=== PATIENT | female | born 1965 | race Two or more races ===

== ENCOUNTER → 2020-12-06 | Day surgery (SDC) | payer BC | END | disposition home or self-care (01) | LOC: FMAMMOTONE 08:32 | PROVIDERS: ATTEND Family Medicine Geriatric Medicine | PROC: 0HBT3ZX Excision of Right Breast, Percutaneous Approach, Diagnostic (ICD-10-PCS; principal; 2020-12-06) | DX: D05.01 Lobular carcinoma in situ of right breast (principal); N60.81 Other benign mammary dysplasias of right breast; N64.89 Other specified disorders of breast; R92.0 Mammographic microcalcification found on diagnostic imaging of breast | CPT/HCPCS: 19081; 76098-TC-FY; 87899; 88305-TC; 88342-TC; A4648 ==

== ENCOUNTER 2021-01-17 11:54 | Inpatient (IN) | payer BC ==
[2021-01-17 13:29] LABS: BASO % 1.4 % (0-2.0); EOS % 2.5 % (0-4.5); HEMATOCRIT 42.5 % (32.4-45.2); HEMOGLOBIN 14.9 GM/dL (10.7-15.3); MCH 28.9 pg (25.7-33.7); MEAN CELL VOLUME 82.6 fl (80-96); MEAN PLT VOLUME 9.7 fl (7.5-11.1); MONO % 6.2 % (3.8-10.2); NEUT % 69.9 % (42.8-82.8); PLATELET COUNT 301 10^3/uL (134-434); RBC 5.14 M/mm3 (3.60-5.2); RDW 15.8 % (11.6-15.6); WHITE BLOOD COUNT 6.7 K/mm3 (4.0-10.0)
[2021-01-17 13:41] LABS: INR 1.03 (0.83-1.09); PROTHROMBIN TIME (PATIENT) 11.5 SEC (9.7-13.0)
[2021-01-17 13:44] LABS: ACTIVATED PTT 38.2 SECONDS (25.2-36.5)
[2021-01-17 13:58] LABS: CHLORIDE 107 mmol/L (98-107); SODIUM 137 mmol/L (136-145)
[2021-01-17 14:00] LABS: ALBUMIN 3.1 g/dl (3.4-5.0); ANION GAP 9 MMOL/L (8-16); BLOOD UREA NITROGEN 12.9 mg/dL (7-18); CALCIUM 9.7 mg/dL (8.5-10.1); CO2 21 mmol/L (21-32); GLUCOSE,RANDOM 112 mg/dL (74-106); MAGNESIUM 2.2 mg/dL (1.8-2.4)
[2021-01-17 14:03] LABS: BILIRUBIN,DIRECT 5.8 mg/dL (0.0-0.2); CREATININE 0.7 mg/dL (0.55-1.3); SGOT/AST 74 U/L (15-37); SGPT/ALT 115 U/L (13-61)
[2021-01-17 14:04] LABS: BILIRUBIN,TOTAL 6.8 mg/dL (0.2-1); TOT PROT 7.1 g/dl (6.4-8.2)
[2021-01-17 14:06] LABS: ALK PHOS 412 U/L (45-117)
[2021-01-17 14:15] LABS: GAMMA GLUTAMYL TRANSPEPTIDASE 936 U/L (5-85)
[2021-01-17] MEDS ORDERED: ONDANSETRON 4 MG/2 ML VIAL IVPUSH ONE (14:23)
[2021-01-17] MEDS ORDERED: LACTATED RINGERS SOLUTION 1000 ML INFUS.BAG IV ONE (14:24)
[2021-01-17] MEDS ORDERED: ONDANSETRON 4 MG/2 ML VIAL ONE (14:50)
[2021-01-17] MEDS ORDERED: PIPERACILLIN/TAZOB 4.5 GM 4.5 GM in DEXTROSE 5%-WATER 100 ML IVPB ONE (15:08)
[2021-01-17] MEDS ORDERED: PIPERACILLIN/TAZOB 4.5 GM 4.5 GM/100 ML BAG IVPB ONE (15:14)
[2021-01-17] MEDS ORDERED: SODIUM CHLORIDE 0.45% 1,000 ML IV SCH (17:30)
[2021-01-17 18:57] LABS: EPI CELLS 9 /uL (0-25.1); HYALINE CASTS 5 /uL (0-3.1); PH,URINE 5.5 (5.0-8.0); URINE APPEARANCE CLOUDY; URINE BILIRUBIN 3+ (NEGATIVE); URINE COLOR DK YELLOW; URINE GLUCOSE (UA) NEGATIVE (NEGATIVE); URINE KETONE NEGATIVE (NEGATIVE); URINE LEUK ESTERASE 1+ (NEGATIVE); URINE NITRITE POSITIVE (NEGATIVE); URINE PROTEIN 1+ (NEGATIVE); URINE RBC 5 /uL (0-23.9); URINE WBC 18 /uL (0-25.8)
[2021-01-17 19:54] LABS: URINE CRYSTALS MOD. BILI /hpf
[2021-01-17] MEDS ORDERED: ONDANSETRON 4 MG/2 ML VIAL IVPUSH PRN (21:46)
[2021-01-17] MEDS ORDERED: CEFTRIAXONE 1 GM/50 ML BAG ONE (22:01)
[2021-01-17] MEDS: CEFTRIAXONE 1 GM in DEXTROSE 5%-WATER - 50 ML IVPB SCH (22:19)
[2021-01-17] MEDS: DEXTROSE 5%-0.45% SALINE 1,000 ML IV SCH (22:19)
[2021-01-18 00:06] VITALS: BMI 37.9
[2021-01-18] MEDS ORDERED: INDOMETHACIN 50 MG RECTAL SUPPOSITORY PR ONE (07:42)
[2021-01-18] MEDS ORDERED: MIDAZOLAM HCL 2 MG/2 ML SINGLE DOSE VIAL ONE (07:46)
[2021-01-18] MEDS ORDERED: fentaNYL CITRATE 250 MCG/5 ML VIAL ONE (07:46)
[2021-01-18] MEDS ORDERED: KETAMINE HCL 500 MG/10 ML VIAL ONE (07:46)
[2021-01-18] MEDS ORDERED: ALBUTEROL SO4 HFA INHALER IH ONE (07:46)
[2021-01-18 08:43] LABS: HEMATOCRIT 40.5 % (32.4-45.2); MCH 28.5 pg (25.7-33.7); MCHC 34.5 g/dl (32.0-36.0); MEAN CELL VOLUME 82.5 fl (80-96); MEAN PLT VOLUME 10.3 fl (7.5-11.1); PLATELET COUNT 272 10^3/uL (134-434); RDW 15.7 % (11.6-15.6); WHITE BLOOD COUNT 6.3 K/mm3 (4.0-10.0)
[2021-01-18 09:02] LABS: CALCIUM 9.4 mg/dL (8.5-10.1)
[2021-01-18 09:03] LABS: BLOOD UREA NITROGEN 9.6 mg/dL (7-18)
[2021-01-18 09:06] LABS: CREATININE 0.7 mg/dL (0.55-1.3)
[2021-01-18 09:08] LABS: BILIRUBIN,TOTAL 6.5 mg/dL (0.2-1); TOT PROT 6.6 g/dl (6.4-8.2)
[2021-01-18 09:40] LABS: ANISOCYTOSIS 0; HELMET CELLS 0; HOWELL-JOLLY BODIES 0; MACROCYTOSIS 0; OVALOCYTE 0; PLATELET ESTIMATE NORMAL; ROULEAU 0; SICKELED CELLS 0; TARGET CELLS 0; TEAR DROP CELLS 0; TOXIC GRANULATION 0
[2021-01-18] MEDS ORDERED: ALBUTEROL SO4 0.083% IH SOL 2.5 MG/3 ML VIAL.NEB. NEB ONE (10:09)
[2021-01-18] MEDS ORDERED: IPRATROPIUM BR 0.02% 0.5 MG/2.5 ML VIAL.NEB. NEB ONE ×2 (10:09→10:21)
[2021-01-18] MEDS ORDERED: cefTRIAXone SODIUM 1 GM VIAL ONE ×2 (10:19→10:29)
[2021-01-18] MEDS: CEFTRIAXONE 1 GM in DEXTROSE 5%-WATER - 50 ML IVPB SCH (10:37)
[2021-01-18] MEDS: DEXTROSE 5%-0.45% SALINE 1,000 ML IV SCH ×2 (12:34→19:13)
[2021-01-18] MEDS ORDERED: ONDANSETRON 4 MG/2 ML VIAL IVPUSH PRN (12:50)
[2021-01-18] MEDS: ENOXAPARIN NA (PORCINE) 40 MG/0.4 ML DISP.SYRIN SQ SCH (22:07)
[2021-01-19] MEDS: DEXTROSE 5%-0.45% SALINE 1,000 ML IV SCH (01:44)
[2021-01-19 08:54] LABS: BASO % 0.5 % (0-2.0); HEMATOCRIT 34.8 % (32.4-45.2); HEMOGLOBIN 11.8 GM/dL (10.7-15.3); LYMPH % 15.7 % (8-40); MCH 28.9 pg (25.7-33.7); MEAN CELL VOLUME 85.1 fl (80-96); MEAN PLT VOLUME 11.1 fl (7.5-11.1); MONO % 5.1 % (3.8-10.2); NEUT % 78.7 % (42.8-82.8); PLATELET COUNT 240 10^3/uL (134-434); RBC 4.09 M/mm3 (3.60-5.2); RDW 15.9 % (11.6-15.6); WHITE BLOOD COUNT 10.5 K/mm3 (4.0-10.0)
[2021-01-19 09:02] LABS: ALBUMIN 2.4 g/dl (3.4-5.0); BLOOD UREA NITROGEN 9.3 mg/dL (7-18); CALCIUM 8.5 mg/dL (8.5-10.1)
[2021-01-19 09:05] LABS: CREATININE 0.6 mg/dL (0.55-1.3)
[2021-01-19 09:06] LABS: BILIRUBIN,TOTAL 2.9 mg/dL (0.2-1)
[2021-01-19 09:07] LABS: TOT PROT 5.6 g/dl (6.4-8.2)
[2021-01-19] MEDS ORDERED: DEXTROSE 5%-WATER - 50 ML IVPB ONE (09:14)
[2021-01-19] MEDS ORDERED: cefTRIAXone SODIUM 1 GM VIAL ONE (09:14)
[2021-01-19] MEDS: ENOXAPARIN NA (PORCINE) 40 MG/0.4 ML DISP.SYRIN SQ SCH (09:19)
[2021-01-19] MEDS: CEFTRIAXONE 1 GM in DEXTROSE 5%-WATER - 50 ML IVPB SCH (09:19)
[2021-01-19] MEDS ORDERED: KETOROLAC TROMETHAMINE 30 MG/1 ML VIAL IVPUSH ONE (20:15)
[2021-01-20] MEDS: DEXTROSE 5%-0.45% SALINE 1,000 ML IV SCH ×2 (03:07→17:41)
[2021-01-20] MEDS ORDERED: cefTRIAXone SODIUM 1 GM VIAL ONE (09:01)
[2021-01-20] MEDS ORDERED: DEXTROSE 5%-WATER - 50 ML IVPB ONE (09:01)
[2021-01-20] MEDS: ENOXAPARIN NA (PORCINE) 40 MG/0.4 ML DISP.SYRIN SQ SCH (09:10)
[2021-01-20] MEDS: CEFTRIAXONE 1 GM in DEXTROSE 5%-WATER - 50 ML IVPB SCH (09:10)
[2021-01-20 09:26] LABS: BASO % 0.5 % (0-2.0); EOS % 2.2 % (0-4.5); HEMATOCRIT 37.8 % (32.4-45.2); HEMOGLOBIN 12.8 GM/dL (10.7-15.3); LYMPH % 29.5 % (8-40); MCH 28.9 pg (25.7-33.7); MCHC 33.7 g/dl (32.0-36.0); MEAN CELL VOLUME 85.8 fl (80-96); MEAN PLT VOLUME 10.6 fl (7.5-11.1); MONO % 5.8 % (3.8-10.2); PLATELET COUNT 273 10^3/uL (134-434); RBC 4.41 M/mm3 (3.60-5.2); RDW 15.8 % (11.6-15.6); WHITE BLOOD COUNT 7.5 K/mm3 (4.0-10.0)
[2021-01-20 09:45] LABS: BLOOD UREA NITROGEN 10.1 mg/dL (7-18)
[2021-01-20 09:46] LABS: ALBUMIN 2.8 g/dl (3.4-5.0); CALCIUM 8.9 mg/dL (8.5-10.1)
[2021-01-20 09:48] LABS: BILIRUBIN,DIRECT 2.1 mg/dL (0.0-0.2); CREATININE 0.7 mg/dL (0.55-1.3)
[2021-01-20 09:50] LABS: BILIRUBIN,TOTAL 2.6 mg/dL (0.2-1); TOT PROT 6.2 g/dl (6.4-8.2)
[2021-01-21 08:42] LABS: HEMATOCRIT 36.5 % (32.4-45.2); HEMOGLOBIN 12.4 GM/dL (10.7-15.3); LYMPH % 23.3 % (8-40); MCH 28.7 pg (25.7-33.7); MEAN CELL VOLUME 84.5 fl (80-96); MEAN PLT VOLUME 10.2 fl (7.5-11.1); MONO % 7.7 % (3.8-10.2); PLATELET COUNT 252 10^3/uL (134-434); RBC 4.32 M/mm3 (3.60-5.2); RDW 15.3 % (11.6-15.6); WHITE BLOOD COUNT 7.7 K/mm3 (4.0-10.0)
[2021-01-21 09:11] LABS: CALCIUM 8.7 mg/dL (8.5-10.1)
[2021-01-21 09:12] LABS: ALBUMIN 2.4 g/dl (3.4-5.0); BLOOD UREA NITROGEN 8.2 mg/dL (7-18)
[2021-01-21 09:15] LABS: BILIRUBIN,DIRECT 1.7 mg/dL (0.0-0.2); CREATININE 0.6 mg/dL (0.55-1.3)
[2021-01-21 09:17] LABS: BILIRUBIN,TOTAL 2.3 mg/dL (0.2-1); TOT PROT 5.7 g/dl (6.4-8.2)
[2021-01-21] MEDS ORDERED: cefTRIAXone SODIUM 1 GM VIAL ONE (10:56)
[2021-01-21] MEDS ORDERED: DEXTROSE 5%-WATER - 50 ML IVPB ONE (10:56)
[2021-01-21] MEDS: CEFTRIAXONE 1 GM in DEXTROSE 5%-WATER - 50 ML IVPB SCH (11:01)
[2021-01-21] MEDS: ENOXAPARIN NA (PORCINE) 40 MG/0.4 ML DISP.SYRIN SQ SCH (11:01)
[2021-01-21] MEDS: DEXTROSE 5%-0.45% SALINE 1,000 ML IV SCH (12:15)
[2021-01-21 14:39] LABS: URINE APPEARANCE CLEAR; URINE BILIRUBIN NEGATIVE (NEGATIVE); URINE COLOR YELLOW; URINE GLUCOSE (UA) NEGATIVE (NEGATIVE); URINE KETONE NEGATIVE (NEGATIVE); URINE LEUK ESTERASE NEGATIVE (NEGATIVE); URINE NITRITE NEGATIVE (NEGATIVE); URINE PROTEIN NEGATIVE (NEGATIVE)
[2021-01-21 15:50] VITALS: BP 126/83; PULSE 98; TEMP 98.6
== END 2021-01-21 20:25 | disposition home or self-care (01) | DRG 445 ==
LOC: JER 11:54 → JERBED 13:01 → J8W 23:41
PROVIDERS: ADMIT Internal Medicine; ATTEND Internal Medicine
PROC: 0F798DZ Dilation of Common Bile Duct with Intraluminal Device, Via Natural or Artificial Opening Endoscopic (ICD-10-PCS; principal; 2021-01-18 07:30)
DX: K83.1 Obstruction of bile duct (principal); R17 Unspecified jaundice; J44.9 Chronic obstructive pulmonary disease, unspecified; E66.9 Obesity, unspecified; R79.89 Other specified abnormal findings of blood chemistry; E86.0 Dehydration; R74.01 Elevation of levels of liver transaminase levels; K83.8 Other specified diseases of biliary tract
CPT/HCPCS: 36415; 80048; 80053; 80076; 80307; 81003; 82248; 82378; 82436; 82570; 82977; 83690; 83735; 84133; 84156; 84300; 84484; 85025; 85610; 85730; 86301; 86705; 86708; 87086; 87340; 87517; 87522; 93005; 93010; 94640; 99285-25; C9803; U0003; U0005

== ENCOUNTER 2021-03-05 04:23 | Day surgery (SDC) | payer BC ==
[2021-03-04 16:47] VITALS: BMI 38.9
[2021-03-05] MEDS ORDERED: PROPOFOL 20 ML ONE (16:21)
[2021-03-05] MEDS ORDERED: MIDAZOLAM HCL 2 MG/2 ML SINGLE DOSE VIAL ONE (16:22)
[2021-03-05] MEDS ORDERED: ONDANSETRON 4 MG/2 ML VIAL IVPUSH PRN (16:27)
[2021-03-05] MEDS ORDERED: PROMETHAZINE HCL 25 MG/1 ML VIAL IVPUSH PRN (16:27)
[2021-03-05] MEDS ORDERED: LACTATED RINGERS SOLUTION 1,000 ML IV SCH (16:30)
[2021-03-05] MEDS ORDERED: ceFAZolin SODIUM 1 GM VIAL IVPB ONE (16:49)
[2021-03-05] MEDS ORDERED: LIDOCAINE HCL 1%, 10 MG/ML (20ML VIAL) NR ONE (16:57)
[2021-03-05 19:35] VITALS: BP 112/69; PULSE 96; TEMP 89.6
== END 2021-03-05 19:50 | disposition home or self-care (01) ==
LOC: JASU-SURG 04:23
PROVIDERS: ATTEND Surgery Vascular Surgery
PROC: 05HM33Z Insertion of Infusion Device into Right Internal Jugular Vein, Percutaneous Approach (ICD-10-PCS; 2021-03-05)
PROC: B543ZZA Ultrasonography of Right Jugular Veins, Guidance (ICD-10-PCS; 2021-03-05)
PROC: 0JH63XZ Insertion of Tunneled Vascular Access Device into Chest Subcutaneous Tissue and Fascia, Percutaneous Approach (ICD-10-PCS; principal; 2021-03-05 16:00)
DX: C25.9 Malignant neoplasm of pancreas, unspecified (principal)
CPT/HCPCS: 36561; 76937; C1788; 71045-TC-FY; 76000-TC-FY; 81025; 94760

== ENCOUNTER → 2021-03-06 | Day surgery (SDC) | payer BC ==
[~2021-03-06] MED LIST: ATROPINE SO4 0.4 MG/1 ML VIAL SQ ONE; DEXAMETHASONE SODIUM PHOSPHATE 10 MG in SODIUM CHLORIDE 50 ML IVPB ONE; FLUOROURACIL CP ONE; FOSAPREPITANT DIMEGLUMINE 150 MG in SODIUM CHLORIDE 145 ML IVPB ONE; IRINOTECAN HCL 320 MG in DEXTROSE 5%-WATER - 500 ML IVPB ONE; LEUCOVORIN INJECTION - 860 MG in DEXTROSE 5%-WATER - 250 ML IVPB ONE; PALONOSETRON HCL 0.25 MG/5 ML VIAL IVPUSH ONE; PORTA CATH FLUSH 10 ML IVPUSH ONE; SODIUM CHLORIDE 250 ML IV ONE; SODIUM CHLORIDE 500 ML IV STA; SODIUM CHLORIDE CP ONE
[2021-03-06 17:46] VITALS: BP 114/70; PULSE 96; TEMP 98.3
== END | disposition home or self-care (01) ==
LOC: JONCCHEMO 07:15
PROVIDERS: ATTEND Internal Medicine Hematology & Oncology
DX: Z51.11 Encounter for antineoplastic chemotherapy (principal); C25.0 Malignant neoplasm of head of pancreas
CPT/HCPCS: 96361; 96366; 96367; 96375; 96413; 96415; 96417; G0498; J1453; J2469; J9206; J9263

== ENCOUNTER 2021-03-08 16:30 | Day surgery (SDC) | payer BC ==
[2021-03-08 18:17] VITALS: BP 141/78; PULSE 97; TEMP 98.6
== END 2021-03-08 19:43 | disposition home or self-care (01) ==
LOC: JONCNONCHE 16:30 → J7W 16:30 → JONCNONCHE 19:43
PROVIDERS: ATTEND Internal Medicine Hematology & Oncology
PROC: 2W54XYZ Removal of Other Device on Chest Wall (ICD-10-PCS; principal; 2021-03-08)
DX: Z53.8 Procedure and treatment not carried out for other reasons (principal)

== ENCOUNTER → 2021-03-27 | Day surgery (SDC) | payer BC ==
[~2021-03-27] MED LIST changes: -PORTA CATH FLUSH 10 ML IVPUSH ONE; -SODIUM CHLORIDE 500 ML IV STA
[2021-03-27 11:35] LABS: BASO % 1.2 % (0-2.0); EOS % 4.5 % (0-4.5); HEMATOCRIT 40.6 % (32.4-45.2); HEMOGLOBIN 13.4 GM/dL (10.7-15.3); LYMPH % 19.5 % (8-40); MCH 27.9 pg (25.7-33.7); MEAN CELL VOLUME 84.3 fl (80-96); MEAN PLT VOLUME 8.6 fl (7.5-11.1); NEUT % 68.8 % (42.8-82.8); PLATELET COUNT 299 10^3/uL (134-434); RBC 4.82 M/mm3 (3.60-5.2); RDW 14.7 % (11.6-15.6); WHITE BLOOD COUNT 7.7 K/mm3 (4.0-10.0)
[2021-03-27 11:55] LABS: ALBUMIN 3.4 g/dl (3.4-5.0); CALCIUM 9.3 mg/dL (8.5-10.1); MAGNESIUM 2.1 mg/dL (1.8-2.4)
[2021-03-27 11:56] LABS: BLOOD UREA NITROGEN 12.2 mg/dL (7-18)
[2021-03-27 11:59] LABS: CREATININE 0.7 mg/dL (0.55-1.3)
[2021-03-27 12:07] LABS: BILIRUBIN,TOTAL 0.5 mg/dL (0.2-1); TOT PROT 7.1 g/dl (6.4-8.2)
== END | disposition home or self-care (01) ==
LOC: JONCCHEMO 07:25
PROVIDERS: ATTEND Internal Medicine Hematology & Oncology
DX: Z53.8 Procedure and treatment not carried out for other reasons (principal)
CPT/HCPCS: 36415; 80053; 83735; 85025

== ENCOUNTER 2021-04-03 07:59 | Day surgery (SDC) | payer BC ==
[2021-04-03 10:45] LABS: BASO % 1.2 % (0-2.0); EOS % 1.6 % (0-4.5); HEMATOCRIT 41.1 % (32.4-45.2); HEMOGLOBIN 13.8 GM/dL (10.7-15.3); LYMPH % 26.9 % (8-40); MCH 28.6 pg (25.7-33.7); MCHC 33.5 g/dl (32.0-36.0); MEAN CELL VOLUME 85.1 fl (80-96); MEAN PLT VOLUME 8.4 fl (7.5-11.1); MONO % 8.7 % (3.8-10.2); NEUT % 61.6 % (42.8-82.8); PLATELET COUNT 306 10^3/uL (134-434); RBC 4.83 M/mm3 (3.60-5.2); RDW 14.6 % (11.6-15.6); WHITE BLOOD COUNT 6.5 K/mm3 (4.0-10.0)
[2021-04-03 11:02] LABS: ALBUMIN 3.5 g/dl (3.4-5.0); BLOOD UREA NITROGEN 11.3 mg/dL (7-18); CALCIUM 9.7 mg/dL (8.5-10.1)
[2021-04-03 11:05] LABS: CREATININE 0.7 mg/dL (0.55-1.3)
[2021-04-03 11:07] LABS: BILIRUBIN,TOTAL 0.4 mg/dL (0.2-1); TOT PROT 7.3 g/dl (6.4-8.2)
[2021-04-03] MEDS ORDERED: SODIUM CHLORIDE 250 ML IV STA (11:11)
[2021-04-03] MEDS ORDERED: ALTEPLASE (CATHFLO) 2 MG/2 ML VIAL NR ONE (13:03)
[2021-04-03] MEDS ORDERED: FOSAPREPITANT DIMEGLUMINE 150 MG in SODIUM CHLORIDE 145 ML IVPB ONE (13:30)
[2021-04-03] MEDS ORDERED: ATROPINE SO4 0.4 MG/1 ML VIAL SQ ONE (13:30)
[2021-04-03] MEDS ORDERED: PALONOSETRON HCL 0.25 MG/5 ML VIAL IVPUSH ONE (13:30)
[2021-04-03] MEDS ORDERED: DEXAMETHASONE INJECTION 12 MG in SODIUM CHLORIDE 50 ML IVPB ONE (13:30)
[2021-04-03] MEDS ORDERED: LEUCOVORIN INJECTION - 848 MG in DEXTROSE 5%-WATER - 250 ML IVPB ONE (16:00)
[2021-04-03] MEDS ORDERED: IRINOTECAN HCL 250 MG in DEXTROSE 5%-WATER - 500 ML IVPB ONE (16:30)
[2021-04-03 17:54] VITALS: TEMP 98.1
[2021-04-03] MEDS ORDERED: PORTA CATH FLUSH 10 ML IVPUSH ONE (17:54)
[2021-04-03] MEDS ORDERED: FLUOROURACIL 4,075 MG in SODIUM CHLORIDE 10.5 ML CP ONE (18:00)
[2021-04-03 18:47] VITALS: BP 116/67; PULSE 85
== END 2021-04-03 18:57 | disposition home or self-care (01) ==
LOC: JONCCHEMO 07:59
PROVIDERS: ATTEND Internal Medicine Hematology & Oncology
DX: Z51.11 Encounter for antineoplastic chemotherapy (principal); C25.9 Malignant neoplasm of pancreas, unspecified
CPT/HCPCS: 36415; 80053; 85025; 86803; 96366; 96375; 96413; 96415; 96417; G0498; J1100; J1453; J2469; J2997; J9206; J9263

== ENCOUNTER 2021-04-17 07:14 | Day surgery (SDC) | payer BC ==
[2021-04-17] MEDS ORDERED: SODIUM CHLORIDE 250 ML IV ONE (10:00)
[2021-04-17 10:01] LABS: HEMATOCRIT 41.7 % (32.4-45.2); HEMOGLOBIN 13.7 GM/dL (10.7-15.3); MCH 28.3 pg (25.7-33.7); MCHC 32.8 g/dl (32.0-36.0); MEAN CELL VOLUME 86.3 fl (80-96); MEAN PLT VOLUME 8.7 fl (7.5-11.1); PLATELET COUNT 233 10^3/uL (134-434); RBC 4.84 M/mm3 (3.60-5.2); RDW 15.1 % (11.6-15.6)
[2021-04-17 10:20] LABS: ALBUMIN 3.5 g/dl (3.4-5.0)
[2021-04-17 10:21] LABS: BLOOD UREA NITROGEN 16.6 mg/dL (7-18)
[2021-04-17 10:23] LABS: CALCIUM 8.8 mg/dL (8.5-10.1); CREATININE 0.8 mg/dL (0.55-1.3)
[2021-04-17 10:25] LABS: TOT PROT 7.2 g/dl (6.4-8.2)
[2021-04-17] MEDS ORDERED: ATROPINE SO4 0.4 MG/1 ML VIAL SQ ONE (10:30)
[2021-04-17] MEDS ORDERED: DEXAMETHASONE INJECTION 12 MG in SODIUM CHLORIDE 50 ML IVPB ONE (10:30)
[2021-04-17] MEDS ORDERED: FOSAPREPITANT DIMEGLUMINE 150 MG in SODIUM CHLORIDE 145 ML IVPB ONE (10:30)
[2021-04-17] MEDS ORDERED: PALONOSETRON HCL 0.25 MG/5 ML VIAL IVPUSH ONE (10:30)
[2021-04-17 10:33] LABS: BILIRUBIN,TOTAL 0.2 mg/dL (0.2-1)
[2021-04-17 10:34] LABS: ANISOCYTOSIS 0; HELMET CELLS 0; HOWELL-JOLLY BODIES 0; MACROCYTOSIS 0; OVALOCYTE 0; PLATELET ESTIMATE NORMAL; ROULEAU 0; SICKELED CELLS 0; TARGET CELLS 0; TEAR DROP CELLS 0; TOXIC GRANULATION 0
[2021-04-17] MEDS ORDERED: SODIUM CHLORIDE 500 ML IV STA (10:42)
[2021-04-17] MEDS ORDERED: LEUCOVORIN INJECTION - 848 MG in DEXTROSE 5%-WATER - 250 ML IVPB ONE (11:00)
[2021-04-17 12:14] LABS: MAGNESIUM 2.1 mg/dL (1.8-2.4)
[2021-04-17] MEDS ORDERED: IRINOTECAN HCL 250 MG in DEXTROSE 5%-WATER - 500 ML IVPB ONE (13:00)
[2021-04-17] MEDS ORDERED: FLUOROURACIL 4,075 MG in SODIUM CHLORIDE 10.5 ML CP ONE (14:30)
[2021-04-17 16:57] VITALS: TEMP 98.2
[2021-04-17] MEDS ORDERED: PORTA CATH FLUSH 10 ML IVPUSH ONE (16:57)
[2021-04-17 18:49] VITALS: BP 135/71; PULSE 75
== END 2021-04-17 18:45 | disposition home or self-care (01) ==
LOC: JONCCHEMO 07:14
PROVIDERS: ATTEND Internal Medicine Hematology & Oncology
DX: Z51.11 Encounter for antineoplastic chemotherapy (principal); C25.9 Malignant neoplasm of pancreas, unspecified; C78.89 Secondary malignant neoplasm of other digestive organs
CPT/HCPCS: 36415; 80053; 83735; 85025; 96361; 96366; 96367; 96375; 96413; 96415; 96417; G0498; J1100; J1453; J2469; J9206; J9263

== ENCOUNTER 2021-05-01 08:31 | Day surgery (SDC) | payer BC ==
[2021-05-01 09:17] LABS: HEMATOCRIT 40.2 % (32.4-45.2); HEMOGLOBIN 13.6 GM/dL (10.7-15.3); MCHC 33.8 g/dl (32.0-36.0); MEAN CELL VOLUME 85.6 fl (80-96); MEAN PLT VOLUME 8.4 fl (7.5-11.1); PLATELET COUNT 183 10^3/uL (134-434); RDW 15.4 % (11.6-15.6); WHITE BLOOD COUNT 5.5 K/mm3 (4.0-10.0)
[2021-05-01] MEDS ORDERED: SODIUM CHLORIDE 250 ML IV ONE (09:30)
[2021-05-01] MEDS ORDERED: SODIUM CHLORIDE 500 ML IV ONE (09:50)
[2021-05-01 09:51] LABS: ALBUMIN 3.4 g/dl (3.4-5.0)
[2021-05-01 09:55] LABS: CREATININE 0.5 mg/dL (0.55-1.3)
[2021-05-01 09:56] LABS: BILIRUBIN,TOTAL 0.2 mg/dL (0.2-1); TOT PROT 6.8 g/dl (6.4-8.2)
[2021-05-01 09:58] LABS: CALCIUM 8.8 mg/dL (8.5-10.1)
[2021-05-01] MEDS ORDERED: LOPERAMIDE HCL 2 MG CAPSULE PO ONE (09:58)
[2021-05-01 09:59] LABS: BLOOD UREA NITROGEN 12.3 mg/dL (7-18)
[2021-05-01] MEDS ORDERED: ATROPINE SO4 0.4 MG/1 ML VIAL SQ ONE (10:00)
[2021-05-01] MEDS ORDERED: PALONOSETRON HCL 0.25 MG/5 ML VIAL IVPUSH ONE (10:00)
[2021-05-01] MEDS ORDERED: DEXAMETHASONE SODIUM PHOSPHATE 12 MG in SODIUM CHLORIDE 50 ML IVPB ONE (10:00)
[2021-05-01] MEDS ORDERED: FOSAPREPITANT DIMEGLUMINE 150 MG in SODIUM CHLORIDE 145 ML IVPB ONE (10:00)
[2021-05-01 10:59] LABS: PLATELET ESTIMATE NORMAL
[2021-05-01] MEDS ORDERED: LEUCOVORIN INJECTION - 848 MG in DEXTROSE 5%-WATER - 250 ML IVPB ONE (12:00)
[2021-05-01] MEDS ORDERED: IRINOTECAN HCL 250 MG in DEXTROSE 5%-WATER - 500 ML IVPB ONE (12:30)
[2021-05-01] MEDS ORDERED: FLUOROURACIL 4,075 MG in SODIUM CHLORIDE 10.5 ML CP ONE (14:00)
[2021-05-01 15:35] VITALS: BP 119/67; PULSE 63; TEMP 98
[2021-05-01] MEDS ORDERED: PORTA CATH FLUSH 10 ML IVPUSH ONE (17:27)
== END 2021-05-01 18:24 | disposition home or self-care (01) ==
LOC: JONCCHEMO 08:31
PROVIDERS: ATTEND Internal Medicine Hematology & Oncology
DX: Z51.11 Encounter for antineoplastic chemotherapy (principal); C25.9 Malignant neoplasm of pancreas, unspecified
CPT/HCPCS: 36415; 80053; 85025; 86301; 96361; 96366; 96367; 96375; 96413; 96415; 96417; G0498; J1453; J2469; J9206; J9263

== ENCOUNTER 2021-05-15 06:44 | Day surgery (SDC) | payer BC ==
[2021-05-15] MEDS ORDERED: SODIUM CHLORIDE 250 ML IV ONE (09:30)
[2021-05-15] MEDS ORDERED: ATROPINE SO4 0.4 MG/1 ML VIAL SQ ONE (10:00)
[2021-05-15] MEDS ORDERED: DEXAMETHASONE SODIUM PHOSPHATE 12 MG in SODIUM CHLORIDE 50 ML IVPB ONE (10:00)
[2021-05-15] MEDS ORDERED: FOSAPREPITANT DIMEGLUMINE 150 MG in SODIUM CHLORIDE 145 ML IVPB ONE (10:00)
[2021-05-15] MEDS ORDERED: PALONOSETRON HCL 0.25 MG/5 ML VIAL IVPUSH ONE (10:00)
[2021-05-15] MEDS ORDERED: SODIUM CHLORIDE 500 ML IV STA (10:09)
[2021-05-15 10:11] LABS: HEMATOCRIT 42.3 % (32.4-45.2); HEMOGLOBIN 14.5 GM/dL (10.7-15.3); MCHC 34.3 g/dl (32.0-36.0); MEAN CELL VOLUME 84.6 fl (80-96); MEAN PLT VOLUME 8.4 fl (7.5-11.1); PLATELET COUNT 209 10^3/uL (134-434); RDW 15.7 % (11.6-15.6); WHITE BLOOD COUNT 5.8 K/mm3 (4.0-10.0)
[2021-05-15 10:34] LABS: CALCIUM 9.3 mg/dL (8.5-10.1)
[2021-05-15 10:35] LABS: ALBUMIN 3.5 g/dl (3.4-5.0)
[2021-05-15 10:38] LABS: CREATININE 0.9 mg/dL (0.55-1.3)
[2021-05-15 10:39] LABS: BILIRUBIN,TOTAL 0.3 mg/dL (0.2-1); TOT PROT 7.5 g/dl (6.4-8.2)
[2021-05-15 10:57] LABS: ANISOCYTOSIS 0; HELMET CELLS 0; HOWELL-JOLLY BODIES 0; MACROCYTOSIS 0; OVALOCYTE 0; ROULEAU 0; SICKELED CELLS 0; TARGET CELLS 0; TEAR DROP CELLS 0; TOXIC GRANULATION 0
[2021-05-15] MEDS ORDERED: LEUCOVORIN INJECTION - 848 MG in DEXTROSE 5%-WATER - 250 ML IVPB ONE (12:30)
[2021-05-15] MEDS ORDERED: IRINOTECAN HCL 250 MG in DEXTROSE 5%-WATER - 500 ML IVPB ONE (13:00)
[2021-05-15] MEDS ORDERED: FLUOROURACIL 4,075 MG in SODIUM CHLORIDE 10.5 ML CP ONE (14:30)
[2021-05-15 16:34] VITALS: BP 110/66; PULSE 80; TEMP 98.4
[2021-05-20] MEDS ORDERED: FOSAPREPITANT DIMEGLUMINE 150 MG in SODIUM CHLORIDE 145 ML IVPB ONE (10:00)
== END 2021-05-15 16:44 | disposition home or self-care (01) ==
LOC: JONCCHEMO 06:44
PROVIDERS: ATTEND Internal Medicine Hematology & Oncology
PROC: B513YZA Fluoroscopy of Right Jugular Veins using Other Contrast, Guidance (ICD-10-PCS; principal; 2021-05-15)
PROC: B518YZA Fluoroscopy of Superior Vena Cava using Other Contrast, Guidance (ICD-10-PCS; 2021-05-15)
DX: T82.898A Other specified complication of vascular prosthetic devices, implants and grafts, initial encounter (principal); C25.9 Malignant neoplasm of pancreas, unspecified
CPT/HCPCS: 36010; 36415; 36598; 75827-TC-FY; 80053; 85025; 93970-TC

== ENCOUNTER → 2021-05-16 | Day surgery (SDC) | payer BC ==
[2021-05-16 12:03] VITALS: BP 118/83
[2021-05-16 12:07] VITALS: PULSE 77
== END | disposition home or self-care (01) ==
LOC: JRADIR 10:35
PROVIDERS: ATTEND Internal Medicine Hematology & Oncology
PROC: 0JPT0WZ Removal of Totally Implantable Vascular Access Device from Trunk Subcutaneous Tissue and Fascia, Open Approach (ICD-10-PCS; principal; 2021-05-16)
DX: Z45.2 Encounter for adjustment and management of vascular access device (principal)
CPT/HCPCS: 36590

== ENCOUNTER 2021-05-20 04:57 | Day surgery (SDC) | payer BC ==
[2021-05-17 15:40] VITALS: BMI 38.0
[2021-05-20] MEDS ORDERED: MIDAZOLAM HCL 2 MG/2 ML SINGLE DOSE VIAL ONE (10:54)
[2021-05-20] MEDS ORDERED: MIDAZOLAM HCL 2 MG/2 ML SINGLE DOSE VIAL IVPUSH ONE ×2 (11:00→11:24)
[2021-05-20 12:42] VITALS: PULSE 79; TEMP 98.9
[2021-05-20 14:00] VITALS: BP 113/64
== END 2021-05-20 13:00 | disposition home or self-care (01) ==
LOC: JRADIR 04:57
PROVIDERS: ATTEND Internal Medicine Hematology & Oncology
PROC: 0JH63WZ Insertion of Totally Implantable Vascular Access Device into Chest Subcutaneous Tissue and Fascia, Percutaneous Approach (ICD-10-PCS; principal; 2021-05-20)
DX: C25.9 Malignant neoplasm of pancreas, unspecified (principal)
CPT/HCPCS: 36561; 77001; C1788

== ENCOUNTER 2021-05-20 08:24 | Day surgery (SDC) | payer BC ==
[2021-05-20] MEDS ORDERED: DEXAMETHASONE SODIUM PHOSPHATE 12 MG in SODIUM CHLORIDE 50 ML IVPB ONE (10:00)
[2021-05-20] MEDS ORDERED: ATROPINE SO4 0.4 MG/1 ML VIAL SQ ONE (10:00)
[2021-05-20] MEDS ORDERED: SODIUM CHLORIDE 250 ML IV ONE (10:00)
[2021-05-20] MEDS ORDERED: FOSAPREPITANT DIMEGLUMINE 150 MG in SODIUM CHLORIDE 145 ML IVPB ONE (10:00)
[2021-05-20] MEDS ORDERED: PALONOSETRON HCL 0.25 MG/5 ML VIAL IVPUSH ONE (10:00)
[2021-05-20] MEDS ORDERED: MIDAZOLAM HCL 2 MG/2 ML SINGLE DOSE VIAL IVPUSH ONE ×2 (11:00→11:24)
[2021-05-20] MEDS ORDERED: LEUCOVORIN INJECTION - 848 MG in DEXTROSE 5%-WATER - 250 ML IVPB ONE (12:30)
[2021-05-20] MEDS ORDERED: IRINOTECAN HCL 250 MG in DEXTROSE 5%-WATER - 500 ML IVPB ONE (13:00)
[2021-05-20 13:27] VITALS: TEMP 98.2
[2021-05-20] MEDS ORDERED: FLUOROURACIL 4,075 MG in SODIUM CHLORIDE 10.5 ML CP ONE (14:30)
[2021-05-20 18:58] VITALS: BP 104/63; PULSE 77
== END 2021-05-20 19:05 | disposition home or self-care (01) ==
LOC: JONCCHEMO 08:24
PROVIDERS: ATTEND Internal Medicine Hematology & Oncology
DX: Z51.11 Encounter for antineoplastic chemotherapy (principal); C25.9 Malignant neoplasm of pancreas, unspecified
CPT/HCPCS: 96361; 96366; 96367; 96375; 96413; 96415; 96417; G0498; J1453; J2469; J9206; J9263

== ENCOUNTER 2021-05-22 08:00 | Day surgery (SDC) | payer BC ==
[2021-05-22 18:06] VITALS: BP 138/75; PULSE 75; TEMP 98.4
[2021-05-22] MEDS ORDERED: PORTA CATH FLUSH 10 ML IVPUSH ONE (18:06)
== END 2021-05-22 18:07 | disposition home or self-care (01) ==
LOC: JONCNONCHE 08:00
PROVIDERS: ATTEND Internal Medicine Hematology & Oncology
PROC: 2W54XYZ Removal of Other Device on Chest Wall (ICD-10-PCS; principal; 2021-05-22)
DX: Z53.8 Procedure and treatment not carried out for other reasons (principal)

== ENCOUNTER 2021-06-05 07:16 | Day surgery (SDC) | payer BC ==
[2021-06-05] MEDS ORDERED: SODIUM CHLORIDE 250 ML IV ONE (10:00)
[2021-06-05] MEDS ORDERED: FOSAPREPITANT DIMEGLUMINE 150 MG in SODIUM CHLORIDE 145 ML IVPB ONE (10:30)
[2021-06-05] MEDS ORDERED: PALONOSETRON HCL 0.25 MG/5 ML VIAL IVPUSH ONE (10:30)
[2021-06-05] MEDS ORDERED: DEXAMETHASONE SODIUM PHOSPHATE 12 MG in SODIUM CHLORIDE 50 ML IVPB ONE (10:30)
[2021-06-05] MEDS ORDERED: ATROPINE SO4 0.4 MG/1 ML VIAL SQ ONE (10:30)
[2021-06-05 10:49] LABS: BASO % 0.4 % (0-2.0); EOS % 1.5 % (0-4.5); HEMATOCRIT 39.9 % (32.4-45.2); HEMOGLOBIN 13.7 GM/dL (10.7-15.3); LYMPH % 21.6 % (8-40); MCH 29.2 pg (25.7-33.7); MCHC 34.3 g/dl (32.0-36.0); MEAN CELL VOLUME 85.2 fl (80-96); MONO % 7.4 % (3.8-10.2); NEUT % 69.1 % (42.8-82.8); PLATELET COUNT 188 10^3/uL (134-434); RBC 4.68 M/mm3 (3.60-5.2); RDW 17.2 % (11.6-15.6); WHITE BLOOD COUNT 6.9 K/mm3 (4.0-10.0)
[2021-06-05] MEDS ORDERED: LEUCOVORIN INJECTION - 848 MG in DEXTROSE 5%-WATER - 250 ML IVPB ONE (11:00)
[2021-06-05 11:05] LABS: BLOOD UREA NITROGEN 17.9 mg/dL (7-18); CALCIUM 9.1 mg/dL (8.5-10.1)
[2021-06-05 11:06] LABS: ALBUMIN 3.3 g/dl (3.4-5.0)
[2021-06-05 11:09] LABS: CREATININE 0.8 mg/dL (0.55-1.3)
[2021-06-05 11:10] LABS: BILIRUBIN,TOTAL 0.2 mg/dL (0.2-1); TOT PROT 7.1 g/dl (6.4-8.2)
[2021-06-05] MEDS ORDERED: IRINOTECAN HCL 250 MG in DEXTROSE 5%-WATER - 500 ML IVPB ONE (13:00)
[2021-06-05] MEDS ORDERED: FLUOROURACIL 4,075 MG in SODIUM CHLORIDE 10.5 ML CP ONE (14:30)
[2021-06-05 17:51] VITALS: TEMP 98.3
[2021-06-05 18:00] VITALS: BP 120/67; PULSE 74
== END 2021-06-05 17:40 | disposition home or self-care (01) ==
LOC: JONCCHEMO 07:16
PROVIDERS: ATTEND Internal Medicine Hematology & Oncology
DX: Z51.11 Encounter for antineoplastic chemotherapy (principal); C25.9 Malignant neoplasm of pancreas, unspecified
CPT/HCPCS: 36415; 80053; 85025; 96366; 96367; 96375; 96413; 96415; 96417; G0498; J1453; J2469; J9206; J9263

== ENCOUNTER 2021-08-28 06:49 | Day surgery (SDC) | payer BC ==
[2021-08-28 09:41] LABS: BASO % 0.8 % (0-2.0); HEMATOCRIT 35.5 % (32.4-45.2); HEMOGLOBIN 11.5 GM/dL (10.7-15.3); LYMPH % 28.1 % (8-40); MCH 26.8 pg (25.7-33.7); MCHC 32.5 g/dl (32.0-36.0); MEAN CELL VOLUME 82.5 fl (80-96); MONO % 5.8 % (3.8-10.2); NEUT % 61.3 % (42.8-82.8); PLATELET COUNT 306 10^3/uL (134-434); RDW 15.7 % (11.6-15.6); WHITE BLOOD COUNT 8.4 K/mm3 (4.0-10.0)
[2021-08-28 10:10] LABS: CALCIUM 9.4 mg/dL (8.5-10.1)
[2021-08-28 10:11] LABS: ALBUMIN 3.3 g/dl (3.4-5.0); BLOOD UREA NITROGEN 20.5 mg/dL (7-18)
[2021-08-28 10:13] LABS: CREATININE 0.8 mg/dL (0.55-1.3)
[2021-08-28 10:15] LABS: BILIRUBIN,TOTAL 0.2 mg/dL (0.2-1); TOT PROT 7.5 g/dl (6.4-8.2)
[2021-08-28 19:05] VITALS: BP 130/70; PULSE 68; TEMP 98.1
[2021-08-28] MEDS ORDERED: PORTA CATH FLUSH 10 ML IVPUSH PRN (19:05)
== END 2021-08-28 11:35 | disposition home or self-care (01) ==
LOC: JONCCHEMO 06:49
PROVIDERS: ATTEND Internal Medicine Hematology & Oncology
PROC: 3E013GC Introduction of Other Therapeutic Substance into Subcutaneous Tissue, Percutaneous Approach (ICD-10-PCS; principal; 2021-08-28)
DX: Z53.8 Procedure and treatment not carried out for other reasons (principal)
CPT/HCPCS: 36415; 80053; 85025; 96365

== ENCOUNTER 2021-09-16 20:48 | Inpatient (IN) | payer BC ==
[2021-09-16 21:57] LABS: VENOUS BASE EXCESS 0.7 mmol/L (-2-2); VENOUS PCO2 33.5 mmHg (38-52); VENOUS PH 7.471 (7.310-7.410)
[2021-09-16] MEDS ORDERED: PIPERACILLIN/TAZOB 3.375 GM 3.375 GM in DEXTROSE 5%-WATER - 50 ML IVPB ONE (21:58)
[2021-09-16] MEDS ORDERED: VANCOMYCIN 1 GM in D5W (PRE-DOCKED) 1,000 MG/250 ML IVPB ONE (21:58)
[2021-09-16] MEDS ORDERED: ACETAMINOPHEN 1000 MG/100 ML BAG IVPB ONE (21:58)
[2021-09-16] MEDS ORDERED: ACETAMINOPHEN INJECTION 100 ML IVPB ONE (21:59)
[2021-09-16] MEDS ORDERED: PIPERACILLIN/TAZOB 3.375 GM 3.375 GM/50 ML BAG IVPB ONE (22:00)
[2021-09-16 22:03] LABS: BASO % 0.3 % (0-2.0); HEMATOCRIT 32.9 % (32.4-45.2); HEMOGLOBIN 11.3 GM/dL (10.7-15.3); LYMPH % 8.1 % (8-40); MCHC 34.3 g/dl (32.0-36.0); MEAN CELL VOLUME 78.7 fl (80-96); MEAN PLT VOLUME 7.9 fl (7.5-11.1); MONO % 6.7 % (3.8-10.2); NEUT % 84.9 % (42.8-82.8); PLATELET COUNT 227 10^3/uL (134-434); RBC 4.18 M/mm3 (3.60-5.2); WHITE BLOOD COUNT 12.8 K/mm3 (4.0-10.0)
[2021-09-16] MEDS ORDERED: SODIUM CHLORIDE 0.9% 500 ML INFUS.BAG IV ONE (22:03)
[2021-09-16 22:10] LABS: INR 1.37 (0.83-1.09); PROTHROMBIN TIME (PATIENT) 15.8 SEC (9.7-13.0)
[2021-09-16 22:12] LABS: ACTIVATED PTT 35.5 SECONDS (25.2-36.5)
[2021-09-16 22:21] LABS: CHLORIDE 94 mmol/L (98-107); SODIUM 129 mmol/L (136-145)
[2021-09-16 22:23] LABS: CALCIUM 7.8 mg/dL (8.5-10.1)
[2021-09-16 22:24] LABS: ANION GAP 9 MMOL/L (8-16); BLOOD UREA NITROGEN 16.1 mg/dL (7-18); CO2 26 mmol/L (21-32); GLUCOSE,RANDOM 129 mg/dL (74-106)
[2021-09-16 22:27] LABS: CREATININE 0.9 mg/dL (0.55-1.3); SGOT/AST 45 U/L (15-37)
[2021-09-16 22:30] LABS: ALK PHOS 99 U/L (45-117)
[2021-09-16 22:31] LABS: BILIRUBIN,TOTAL 0.4 mg/dL (0.2-1); SGPT/ALT 55 U/L (13-61)
[2021-09-16] MEDS ORDERED: VANCOMYCIN 1 GRAM (PRE-DOCKED) 1,000 MG/250 ML BAG IVPB ONE (23:35)
[2021-09-17 01:16] LABS: EPI CELLS >36 /uL (0-25.1); HYALINE CASTS 4 /uL (0-3.1); PH,URINE 5.5 (5.0-8.0); URINE APPEARANCE CLOUDY; URINE BACTERIA 277 /uL (0-1359); URINE BILIRUBIN NEGATIVE (NEGATIVE); URINE COLOR YELLOW; URINE GLUCOSE (UA) NEGATIVE (NEGATIVE); URINE KETONE TRACE (NEGATIVE); URINE LEUK ESTERASE NEGATIVE (NEGATIVE); URINE NITRITE NEGATIVE (NEGATIVE); URINE PROTEIN 2+ (NEGATIVE); URINE WBC 45 /uL (0-25.8)
[2021-09-17 03:49] LABS: URINE RBC 33.2 /uL (0-23.9)
[2021-09-17] MEDS ORDERED: ALBUTEROL SO4 2.5/IPRATROPIUM 0.5 INH SOL 3 ML VIAL.NEB. NEB PRN (08:28)
[2021-09-17] MEDS: ACETAMINOPHEN 325 MG TABLET (FP) PO PRN ×3 (08:34→21:50)
[2021-09-17] MEDS: DEXTROSE 5%-0.45% SALINE 1,000 ML IV SCH (08:42)
[2021-09-17] MEDS ORDERED: PANTOPRAZOLE 40 MG TABLET PO ONE (09:28)
[2021-09-17] MEDS ORDERED: HYDROCHLOROTHIAZIDE 25 MG TABLET (FP) ONE (09:28)
[2021-09-17] MEDS ORDERED: ENOXAPARIN NA (PORCINE) 40 MG/0.4 ML DISP.SYRIN SQ ONE (09:29)
[2021-09-17] MEDS ORDERED: PIPERACILLIN/TAZOB 3.375 GM 3.375 GM/50 ML BAG IVPB ONE (09:29)
[2021-09-17] MEDS: HYDROCHLOROTHIAZIDE 25 MG TABLET (FP) PO SCH (09:38)
[2021-09-17] MEDS: ENOXAPARIN NA (PORCINE) 40 MG/0.4 ML DISP.SYRIN SQ SCH (09:38)
[2021-09-17] MEDS: PANTOPRAZOLE 40 MG TABLET PO SCH (09:38)
[2021-09-17] MEDS: FLUTICASONE/UMECLIDIN/VILANTER(100-62.5-25 TRELEGY ELLIPTA) INAHLER IH SCH (09:38)
[2021-09-17] MEDS ORDERED: PIPERACILLIN/TAZOB 3.375 GM 3.375 GM in DEXTROSE 5%-WATER - 50 ML IVPB SCH (10:00)
[2021-09-17] MEDS ORDERED: VANCOMYCIN 1 GRAM (PRE-DOCKED) 1,000 MG/250 ML BAG IVPB SCH (10:00)
[2021-09-17] MEDS ORDERED: VANCOMYCIN 1 GRAM (PRE-DOCKED) 1,000 MG/250 ML BAG IVPB ONE (10:15)
[2021-09-17 15:39] VITALS: BMI 37.1
[2021-09-17] MEDS ORDERED: PIPERACILLIN/TAZOBACTAM 3.375 GM VIAL IVPB ONE (17:24)
[2021-09-17] MEDS ORDERED: DEXTROSE 5%-WATER - 50 ML IVPB ONE (17:24)
[2021-09-17] MEDS: PIPERACILLIN/TAZOB 3.375 GM 3.375 GM in DEXTROSE 5%-WATER - 50 ML IVPB SCH (17:49)
[2021-09-17] MEDS: IBUPROFEN 400 MG TABLET (FP) PO PRN (23:12)
[2021-09-18] MEDS ORDERED: DEXTROSE 5%-WATER - 50 ML IVPB ONE ×3 (01:20→17:08)
[2021-09-18] MEDS ORDERED: PIPERACILLIN/TAZOBACTAM 3.375 GM VIAL IVPB ONE ×3 (01:20→17:08)
[2021-09-18] MEDS: PIPERACILLIN/TAZOB 3.375 GM 3.375 GM in DEXTROSE 5%-WATER - 50 ML IVPB SCH ×3 (01:28→17:13)
[2021-09-18 09:06] LABS: BASO % 0.5 % (0-2.0); EOS % 0.8 % (0-4.5); HEMATOCRIT 34.3 % (32.4-45.2); HEMOGLOBIN 11.4 GM/dL (10.7-15.3); LYMPH % 13.4 % (8-40); MCH 26.6 pg (25.7-33.7); MCHC 33.2 g/dl (32.0-36.0); MEAN CELL VOLUME 80.1 fl (80-96); MEAN PLT VOLUME 8.7 fl (7.5-11.1); MONO % 5.4 % (3.8-10.2); NEUT % 79.9 % (42.8-82.8); PLATELET COUNT 190 10^3/uL (134-434); RBC 4.28 M/mm3 (3.60-5.2); RDW 15.7 % (11.6-15.6); WHITE BLOOD COUNT 5.4 K/mm3 (4.0-10.0)
[2021-09-18 09:47] LABS: ALBUMIN 2.8 g/dl (3.4-5.0); CALCIUM 8.5 mg/dL (8.5-10.1)
[2021-09-18 09:48] LABS: BLOOD UREA NITROGEN 12.2 mg/dL (7-18)
[2021-09-18 09:51] LABS: CREATININE 0.8 mg/dL (0.55-1.3)
[2021-09-18 09:52] LABS: BILIRUBIN,TOTAL 0.5 mg/dL (0.2-1); TOT PROT 6.7 g/dl (6.4-8.2)
[2021-09-18] MEDS ORDERED: VANCOMYCIN 1 GRAM (PRE-DOCKED) 1,000 MG/250 ML BAG IVPB SCH (10:00)
[2021-09-18] MEDS ORDERED: PIPERACILLIN/TAZOB 3.375 GM 3.375 GM in DEXTROSE 5%-WATER - 50 ML IVPB SCH ×2 (10:00)
[2021-09-18] MEDS: HYDROCHLOROTHIAZIDE 25 MG TABLET (FP) PO SCH (10:57)
[2021-09-18] MEDS: DEXTROSE 5%-0.45% SALINE 1,000 ML IV SCH (10:57)
[2021-09-18] MEDS: PANTOPRAZOLE 40 MG TABLET PO SCH (10:58)
[2021-09-18] MEDS: ENOXAPARIN NA (PORCINE) 40 MG/0.4 ML DISP.SYRIN SQ SCH (10:58)
[2021-09-18] MEDS ORDERED: MAG HYDROX/AL HYDROX/SIMETH 30 ML UNIT-DOSE CUP PO PRN (11:36)
[2021-09-18] MEDS: FLUTICASONE/UMECLIDIN/VILANTER(100-62.5-25 TRELEGY ELLIPTA) INAHLER IH SCH (13:15)
[2021-09-18] MEDS: VANCOMYCIN 1 GRAM (PRE-DOCKED) 1,000 MG/250 ML BAG IVPB SCH (13:56)
[2021-09-18] MEDS: ACETAMINOPHEN 325 MG TABLET (FP) PO PRN (15:30)
[2021-09-18] MEDS: FLUCONAZOLE 100 MG/NS 50 ML IVPB SCH (16:57)
[2021-09-18] MEDS: NYSTATIN 500,000 UNITS/5 ML SUSPENSION PO SCH ×2 (17:13→23:00)
[2021-09-18] MEDS: IBUPROFEN 400 MG TABLET (FP) PO PRN (17:21)
[2021-09-19] MEDS ORDERED: PIPERACILLIN/TAZOBACTAM 3.375 GM VIAL IVPB ONE ×3 (01:24→17:30)
[2021-09-19] MEDS ORDERED: DEXTROSE 5%-WATER - 50 ML IVPB ONE ×3 (01:24→17:30)
[2021-09-19] MEDS: PIPERACILLIN/TAZOB 3.375 GM 3.375 GM in DEXTROSE 5%-WATER - 50 ML IVPB SCH ×3 (01:38→18:09)
[2021-09-19] MEDS: DEXTROSE 5%-0.45% SALINE 1,000 ML IV SCH ×3 (01:43→18:13)
[2021-09-19] MEDS: NYSTATIN 500,000 UNITS/5 ML SUSPENSION PO SCH ×4 (05:48→23:32)
[2021-09-19] MEDS: ACETAMINOPHEN 325 MG TABLET (FP) PO PRN ×2 (05:49→13:50)
[2021-09-19 09:07] LABS: BASO % 0.4 % (0-2.0); EOS % 0.7 % (0-4.5); HEMATOCRIT 31.6 % (32.4-45.2); HEMOGLOBIN 10.8 GM/dL (10.7-15.3); MCH 26.9 pg (25.7-33.7); MCHC 34.3 g/dl (32.0-36.0); MEAN CELL VOLUME 78.4 fl (80-96); MEAN PLT VOLUME 8.7 fl (7.5-11.1); MONO % 6.3 % (3.8-10.2); NEUT % 80.6 % (42.8-82.8); PLATELET COUNT 176 10^3/uL (134-434); RBC 4.03 M/mm3 (3.60-5.2); RDW 15.6 % (11.6-15.6); WHITE BLOOD COUNT 5.9 K/mm3 (4.0-10.0)
[2021-09-19 09:17] LABS: CALCIUM 8.2 mg/dL (8.5-10.1)
[2021-09-19 09:18] LABS: ALBUMIN 2.5 g/dl (3.4-5.0); BLOOD UREA NITROGEN 8.8 mg/dL (7-18)
[2021-09-19 09:21] LABS: CREATININE 0.7 mg/dL (0.55-1.3)
[2021-09-19 09:24] LABS: TOT PROT 6.1 g/dl (6.4-8.2)
[2021-09-19 09:26] LABS: BILIRUBIN,TOTAL 0.3 mg/dL (0.2-1)
[2021-09-19] MEDS: PANTOPRAZOLE 40 MG TABLET PO SCH (09:55)
[2021-09-19] MEDS: ENOXAPARIN NA (PORCINE) 40 MG/0.4 ML DISP.SYRIN SQ SCH (09:55)
[2021-09-19] MEDS: HYDROCHLOROTHIAZIDE 25 MG TABLET (FP) PO SCH (09:56)
[2021-09-19] MEDS: FLUTICASONE/UMECLIDIN/VILANTER(100-62.5-25 TRELEGY ELLIPTA) INAHLER IH SCH (10:04)
[2021-09-19] MEDS: FLUCONAZOLE 100 MG/NS 50 ML IVPB SCH (10:18)
[2021-09-19] MEDS: VANCOMYCIN 1 GRAM (PRE-DOCKED) 1,000 MG/250 ML BAG IVPB SCH (13:45)
[2021-09-19] MEDS: IBUPROFEN 400 MG TABLET (FP) PO PRN (18:50)
[2021-09-19] MEDS: DOCUSATE SODIUM 100 MG CAPSULE (FP) PO SCH (21:41)
[2021-09-20] MEDS ORDERED: PIPERACILLIN/TAZOBACTAM 3.375 GM VIAL IVPB ONE ×3 (01:27→16:33)
[2021-09-20] MEDS ORDERED: DEXTROSE 5%-WATER - 50 ML IVPB ONE ×3 (01:27→16:33)
[2021-09-20] MEDS: PIPERACILLIN/TAZOB 3.375 GM 3.375 GM in DEXTROSE 5%-WATER - 50 ML IVPB SCH ×3 (01:45→17:52)
[2021-09-20] MEDS: ACETAMINOPHEN 325 MG TABLET (FP) PO PRN (01:48)
[2021-09-20] MEDS: DEXTROSE 5%-0.45% SALINE 1,000 ML IV SCH ×2 (05:47→10:02)
[2021-09-20] MEDS: NYSTATIN 500,000 UNITS/5 ML SUSPENSION PO SCH ×3 (05:47→17:51)
[2021-09-20] MEDS: ENOXAPARIN NA (PORCINE) 40 MG/0.4 ML DISP.SYRIN SQ SCH (10:03)
[2021-09-20] MEDS: HYDROCHLOROTHIAZIDE 25 MG TABLET (FP) PO SCH (10:04)
[2021-09-20] MEDS: FLUTICASONE/UMECLIDIN/VILANTER(100-62.5-25 TRELEGY ELLIPTA) INAHLER IH SCH (10:04)
[2021-09-20] MEDS: PANTOPRAZOLE 40 MG TABLET PO SCH (10:04)
[2021-09-20 10:54] LABS: BASO % 0.4 % (0-2.0); EOS % 1.6 % (0-4.5); HEMATOCRIT 31.5 % (32.4-45.2); HEMOGLOBIN 10.6 GM/dL (10.7-15.3); LYMPH % 13.8 % (8-40); MCH 26.7 pg (25.7-33.7); MCHC 33.5 g/dl (32.0-36.0); MEAN CELL VOLUME 79.7 fl (80-96); MONO % 5.2 % (3.8-10.2); PLATELET COUNT 186 10^3/uL (134-434); RBC 3.96 M/mm3 (3.60-5.2); WHITE BLOOD COUNT 5.7 K/mm3 (4.0-10.0)
[2021-09-20 11:11] LABS: CALCIUM 8.3 mg/dL (8.5-10.1)
[2021-09-20 11:12] LABS: ALBUMIN 2.6 g/dl (3.4-5.0); BLOOD UREA NITROGEN 9.6 mg/dL (7-18)
[2021-09-20 11:14] LABS: CREATININE 0.8 mg/dL (0.55-1.3)
[2021-09-20 11:17] LABS: BILIRUBIN,TOTAL 0.3 mg/dL (0.2-1)
[2021-09-20 11:18] LABS: TOT PROT 6.4 g/dl (6.4-8.2)
[2021-09-20] MEDS: IBUPROFEN 400 MG TABLET (FP) PO PRN (12:34)
[2021-09-20] MEDS: FLUCONAZOLE 100 MG/NS 50 ML IVPB SCH (14:45)
[2021-09-20] MEDS ORDERED: ACETAMINOPHEN 1000 MG/100 ML BAG IVPB ONE (16:30)
[2021-09-20] MEDS ORDERED: POTASSIUM CHLORIDE TABS 20 MEQ TABLET.ER (FP) PO ONE (18:35)
[2021-09-20] MEDS: KCL 10 MEQ IVPB 10 MEQ/100 ML INFUS.BAG IVPB SCH ×2 (18:40→18:48)
[2021-09-20] MEDS ORDERED: DEXTROSE 5%-WATER 100 ML IVPB ONE (21:06)
[2021-09-20] MEDS ORDERED: DOXYCYCLINE HYCLATE 100 MG VIAL ONE (21:06)
[2021-09-20] MEDS: DOXYCYCLINE INJECTION 100 MG in DEXTROSE 5%-WATER 100 ML IVPB SCH (21:29)
[2021-09-20] MEDS: DOCUSATE SODIUM 100 MG CAPSULE (FP) PO SCH (21:33)
[2021-09-21] MEDS: NYSTATIN 500,000 UNITS/5 ML SUSPENSION PO SCH ×5 (00:25→23:10)
[2021-09-21] MEDS ORDERED: PIPERACILLIN/TAZOBACTAM 3.375 GM VIAL IVPB ONE ×3 (02:02→17:40)
[2021-09-21] MEDS ORDERED: DEXTROSE 5%-WATER - 50 ML IVPB ONE ×3 (02:03→17:40)
[2021-09-21] MEDS: PIPERACILLIN/TAZOB 3.375 GM 3.375 GM in DEXTROSE 5%-WATER - 50 ML IVPB SCH ×3 (02:25→17:47)
[2021-09-21 08:59] LABS: BASO % 0.4 % (0-2.0); EOS % 1.2 % (0-4.5); HEMATOCRIT 30.7 % (32.4-45.2); HEMOGLOBIN 10.4 GM/dL (10.7-15.3); LYMPH % 15.6 % (8-40); MCH 26.9 pg (25.7-33.7); MCHC 33.8 g/dl (32.0-36.0); MEAN CELL VOLUME 79.6 fl (80-96); MONO % 7.2 % (3.8-10.2); NEUT % 75.6 % (42.8-82.8); PLATELET COUNT 211 10^3/uL (134-434); RBC 3.86 M/mm3 (3.60-5.2); RDW 15.9 % (11.6-15.6); WHITE BLOOD COUNT 6.4 K/mm3 (4.0-10.0)
[2021-09-21] MEDS ORDERED: DEXTROSE 5%-WATER 100 ML IVPB ONE ×2 (09:12→21:16)
[2021-09-21] MEDS ORDERED: DOXYCYCLINE HYCLATE 100 MG VIAL ONE ×2 (09:12→21:16)
[2021-09-21] MEDS: HYDROCHLOROTHIAZIDE 25 MG TABLET (FP) PO SCH (09:17)
[2021-09-21] MEDS: PANTOPRAZOLE 40 MG TABLET PO SCH (09:17)
[2021-09-21] MEDS: ENOXAPARIN NA (PORCINE) 40 MG/0.4 ML DISP.SYRIN SQ SCH (09:18)
[2021-09-21] MEDS: FLUTICASONE/UMECLIDIN/VILANTER(200-62.5-25 TRELEGY ELLIPTA) INAHLER IH SCH (09:24)
[2021-09-21 09:30] LABS: ALBUMIN 2.6 g/dl (3.4-5.0); BLOOD UREA NITROGEN 10.9 mg/dL (7-18); CALCIUM 8.6 mg/dL (8.5-10.1)
[2021-09-21 09:34] LABS: CREATININE 0.9 mg/dL (0.55-1.3); TOT PROT 6.3 g/dl (6.4-8.2)
[2021-09-21 09:35] LABS: BILIRUBIN,TOTAL 0.3 mg/dL (0.2-1)
[2021-09-21] MEDS ORDERED: LORazepam 0.5 MG TABLET PO PRN (09:39)
[2021-09-21] MEDS: DOXYCYCLINE INJECTION 100 MG in DEXTROSE 5%-WATER 100 ML IVPB SCH ×2 (09:46→21:31)
[2021-09-21] MEDS: FLUCONAZOLE 100 MG/NS 50 ML IVPB SCH (11:19)
[2021-09-21] MEDS: DEXTROSE 5%-0.45% SALINE 1,000 ML IV SCH (12:57)
[2021-09-21] MEDS: ACETAMINOPHEN 325 MG TABLET (FP) PO PRN (17:50)
[2021-09-21] MEDS: DOCUSATE SODIUM 100 MG CAPSULE (FP) PO SCH (21:31)
[2021-09-22] MEDS ORDERED: DEXTROSE 5%-WATER - 50 ML IVPB ONE ×2 (01:26→09:08)
[2021-09-22] MEDS ORDERED: PIPERACILLIN/TAZOBACTAM 3.375 GM VIAL IVPB ONE ×2 (01:26→09:08)
[2021-09-22] MEDS: PIPERACILLIN/TAZOB 3.375 GM 3.375 GM in DEXTROSE 5%-WATER - 50 ML IVPB SCH ×2 (01:44→09:12)
[2021-09-22] MEDS: NYSTATIN 500,000 UNITS/5 ML SUSPENSION PO SCH ×4 (06:07→23:42)
[2021-09-22] MEDS: DEXTROSE 5%-0.45% SALINE 1,000 ML IV SCH ×3 (06:08→21:28)
[2021-09-22 08:33] LABS: BASO % 0.4 % (0-2.0); EOS % 2.1 % (0-4.5); HEMATOCRIT 28.8 % (32.4-45.2); HEMOGLOBIN 9.7 GM/dL (10.7-15.3); LYMPH % 21.1 % (8-40); MCH 26.6 pg (25.7-33.7); MCHC 33.8 g/dl (32.0-36.0); MEAN CELL VOLUME 78.7 fl (80-96); MEAN PLT VOLUME 8.9 fl (7.5-11.1); MONO % 9.7 % (3.8-10.2); NEUT % 66.7 % (42.8-82.8); PLATELET COUNT 239 10^3/uL (134-434); RBC 3.66 M/mm3 (3.60-5.2); RDW 16.3 % (11.6-15.6); WHITE BLOOD COUNT 6.1 K/mm3 (4.0-10.0)
[2021-09-22 09:07] LABS: BLOOD UREA NITROGEN 9.6 mg/dL (7-18)
[2021-09-22] MEDS ORDERED: DOXYCYCLINE HYCLATE 100 MG VIAL ONE ×2 (09:07→21:19)
[2021-09-22 09:08] LABS: ALBUMIN 2.4 g/dl (3.4-5.0)
[2021-09-22] MEDS ORDERED: DEXTROSE 5%-WATER 100 ML IVPB ONE ×2 (09:08→21:19)
[2021-09-22 09:10] LABS: CALCIUM 8.2 mg/dL (8.5-10.1); CREATININE 0.7 mg/dL (0.55-1.3)
[2021-09-22 09:11] LABS: BILIRUBIN,TOTAL 0.4 mg/dL (0.2-1); TOT PROT 6.2 g/dl (6.4-8.2)
[2021-09-22] MEDS: ENOXAPARIN NA (PORCINE) 40 MG/0.4 ML DISP.SYRIN SQ SCH (09:13)
[2021-09-22] MEDS: PANTOPRAZOLE 40 MG TABLET PO SCH (09:13)
[2021-09-22] MEDS: HYDROCHLOROTHIAZIDE 25 MG TABLET (FP) PO SCH (09:13)
[2021-09-22] MEDS: FLUTICASONE/UMECLIDIN/VILANTER(200-62.5-25 TRELEGY ELLIPTA) INAHLER IH SCH (09:14)
[2021-09-22] MEDS: DOXYCYCLINE INJECTION 100 MG in DEXTROSE 5%-WATER 100 ML IVPB SCH ×2 (09:36→21:26)
[2021-09-22] MEDS: FLUCONAZOLE 100 MG/NS 50 ML IVPB SCH (11:50)
[2021-09-22] MEDS ORDERED: POTASSIUM CHLORIDE TABS 20 MEQ TABLET.ER (FP) PO ONE (17:07)
[2021-09-22] MEDS: guaiFENesin/D-METHORPHAN HB 10 ML UNIT-DOSE CUPS PO PRN (18:05)
[2021-09-22] MEDS: ACETAMINOPHEN 325 MG TABLET (FP) PO PRN (18:57)
[2021-09-22] MEDS: IBUPROFEN 400 MG TABLET (FP) PO PRN (21:28)
[2021-09-22] MEDS: DOCUSATE SODIUM 100 MG CAPSULE (FP) PO SCH (21:28)
[2021-09-23] MEDS: NYSTATIN 500,000 UNITS/5 ML SUSPENSION PO SCH ×3 (05:55→18:08)
[2021-09-23] MEDS ORDERED: ALBUTEROL SO4 0.083% IH SOL 2.5 MG/3 ML VIAL.NEB. NEB PRN (09:19)
[2021-09-23] MEDS ORDERED: DOXYCYCLINE HYCLATE 100 MG VIAL ONE ×2 (11:06→22:11)
[2021-09-23] MEDS ORDERED: DEXTROSE 5%-WATER 100 ML IVPB ONE ×2 (11:07→22:11)
[2021-09-23] MEDS: DOXYCYCLINE INJECTION 100 MG in DEXTROSE 5%-WATER 100 ML IVPB SCH (11:10)
[2021-09-23] MEDS: PANTOPRAZOLE 40 MG TABLET PO SCH (11:10)
[2021-09-23] MEDS: HYDROCHLOROTHIAZIDE 25 MG TABLET (FP) PO SCH (11:10)
[2021-09-23] MEDS: ENOXAPARIN NA (PORCINE) 40 MG/0.4 ML DISP.SYRIN SQ SCH (11:12)
[2021-09-23] MEDS: FLUTICASONE/UMECLIDIN/VILANTER(200-62.5-25 TRELEGY ELLIPTA) INAHLER IH SCH (11:13)
[2021-09-23] MEDS: ALBUTEROL SO4 2.5/IPRATROPIUM 0.5 INH SOL 3 ML VIAL.NEB. NEB SCH ×2 (14:00→20:41)
[2021-09-23 14:23] LABS: ALBUMIN 2.8 g/dl (3.4-5.0); BLOOD UREA NITROGEN 11.3 mg/dL (7-18); CALCIUM 8.4 mg/dL (8.5-10.1)
[2021-09-23 14:27] LABS: BILIRUBIN,TOTAL 0.4 mg/dL (0.2-1); CREATININE 0.7 mg/dL (0.55-1.3)
[2021-09-23 14:28] LABS: TOT PROT 6.8 g/dl (6.4-8.2)
[2021-09-23] MEDS: guaiFENesin/D-METHORPHAN HB 10 ML UNIT-DOSE CUPS PO PRN (18:08)
[2021-09-24] MEDS: DOCUSATE SODIUM 100 MG CAPSULE (FP) PO SCH ×2 (00:02→21:23)
[2021-09-24] MEDS: DEXTROSE 5%-0.45% SALINE 1,000 ML IV SCH ×2 (00:03→18:38)
[2021-09-24] MEDS: DOXYCYCLINE INJECTION 100 MG in DEXTROSE 5%-WATER 100 ML IVPB SCH ×2 (00:06→10:26)
[2021-09-24] MEDS: NYSTATIN 500,000 UNITS/5 ML SUSPENSION PO SCH ×5 (00:59→23:21)
[2021-09-24] MEDS: guaiFENesin/D-METHORPHAN HB 10 ML UNIT-DOSE CUPS PO PRN (01:00)
[2021-09-24] MEDS: ALBUTEROL SO4 2.5/IPRATROPIUM 0.5 INH SOL 3 ML VIAL.NEB. NEB SCH ×3 (07:23→20:29)
[2021-09-24 08:57] LABS: BASO % 0.5 % (0-2.0); EOS % 1.7 % (0-4.5); HEMATOCRIT 29.9 % (32.4-45.2); HEMOGLOBIN 9.9 GM/dL (10.7-15.3); LYMPH % 29.7 % (8-40); MCH 26.3 pg (25.7-33.7); MCHC 33.1 g/dl (32.0-36.0); MEAN CELL VOLUME 79.6 fl (80-96); MONO % 7.4 % (3.8-10.2); NEUT % 60.7 % (42.8-82.8); PLATELET COUNT 340 10^3/uL (134-434); RBC 3.76 M/mm3 (3.60-5.2); RDW 15.7 % (11.6-15.6); WHITE BLOOD COUNT 7.3 K/mm3 (4.0-10.0)
[2021-09-24 09:32] LABS: CALCIUM 8.5 mg/dL (8.5-10.1)
[2021-09-24 09:33] LABS: ALBUMIN 2.8 g/dl (3.4-5.0); BLOOD UREA NITROGEN 11.9 mg/dL (7-18)
[2021-09-24 09:35] LABS: BILIRUBIN,TOTAL 0.6 mg/dL (0.2-1); CREATININE 0.7 mg/dL (0.55-1.3); TOT PROT 6.5 g/dl (6.4-8.2)
[2021-09-24] MEDS ORDERED: DOXYCYCLINE HYCLATE 100 MG VIAL ONE (10:21)
[2021-09-24] MEDS ORDERED: DEXTROSE 5%-WATER 100 ML IVPB ONE (10:21)
[2021-09-24] MEDS: PANTOPRAZOLE 40 MG TABLET PO SCH (10:26)
[2021-09-24] MEDS: HYDROCHLOROTHIAZIDE 25 MG TABLET (FP) PO SCH (10:26)
[2021-09-24] MEDS: FLUTICASONE/UMECLIDIN/VILANTER(200-62.5-25 TRELEGY ELLIPTA) INAHLER IH SCH (10:30)
[2021-09-24] MEDS: ENOXAPARIN NA (PORCINE) 40 MG/0.4 ML DISP.SYRIN SQ SCH (10:30)
[2021-09-24] MEDS: DOXYCYCLINE HYCLATE 100 MG CAPSULE PO SCH (18:13)
[2021-09-24] MEDS: guaiFENesin/CODEINE 10 ML UNIT-DOSE CUPS PO PRN (23:36)
[2021-09-25] MEDS: NYSTATIN 500,000 UNITS/5 ML SUSPENSION PO SCH ×4 (06:16→23:02)
[2021-09-25] MEDS: ALBUTEROL SO4 2.5/IPRATROPIUM 0.5 INH SOL 3 ML VIAL.NEB. NEB SCH ×3 (07:30→19:42)
[2021-09-25] MEDS: DOXYCYCLINE HYCLATE 100 MG CAPSULE PO SCH ×2 (10:57→18:12)
[2021-09-25] MEDS: ENOXAPARIN NA (PORCINE) 40 MG/0.4 ML DISP.SYRIN SQ SCH (10:57)
[2021-09-25] MEDS: PANTOPRAZOLE 40 MG TABLET PO SCH (10:57)
[2021-09-25] MEDS: HYDROCHLOROTHIAZIDE 25 MG TABLET (FP) PO SCH (10:57)
[2021-09-25] MEDS: FLUTICASONE/UMECLIDIN/VILANTER(200-62.5-25 TRELEGY ELLIPTA) INAHLER IH SCH (11:05)
[2021-09-25] MEDS: DEXTROSE 5%-0.45% SALINE 1,000 ML IV SCH (22:16)
[2021-09-25] MEDS: DOCUSATE SODIUM 100 MG CAPSULE (FP) PO SCH (22:25)
[2021-09-26] MEDS: guaiFENesin/CODEINE 10 ML UNIT-DOSE CUPS PO PRN (01:34)
[2021-09-26] MEDS: NYSTATIN 500,000 UNITS/5 ML SUSPENSION PO SCH ×2 (05:26→12:24)
[2021-09-26 07:02] VITALS: BP 111/68; PULSE 72; TEMP 98.1
[2021-09-26] MEDS: ALBUTEROL SO4 2.5/IPRATROPIUM 0.5 INH SOL 3 ML VIAL.NEB. NEB SCH (08:20)
[2021-09-26] MEDS: ENOXAPARIN NA (PORCINE) 40 MG/0.4 ML DISP.SYRIN SQ SCH (10:34)
[2021-09-26] MEDS: DOXYCYCLINE HYCLATE 100 MG CAPSULE PO SCH (10:34)
[2021-09-26] MEDS: PANTOPRAZOLE 40 MG TABLET PO SCH (10:34)
[2021-09-26] MEDS: HYDROCHLOROTHIAZIDE 25 MG TABLET (FP) PO SCH (10:34)
[2021-09-26] MEDS: FLUTICASONE/UMECLIDIN/VILANTER(200-62.5-25 TRELEGY ELLIPTA) INAHLER IH SCH (10:35)
== END 2021-09-26 15:39 | disposition home or self-care (01) | DRG 872 ==
LOC: JER 20:48 → JERBED 09-17 02:06 → J8W 09-17 14:23
PROVIDERS: ADMIT Internal Medicine; ATTEND Internal Medicine
DX: A41.89 Other specified sepsis (principal); B37.0 Candidal stomatitis; C25.9 Malignant neoplasm of pancreas, unspecified; J44.9 Chronic obstructive pulmonary disease, unspecified; K58.9 Irritable bowel syndrome, unspecified; G47.30 Sleep apnea, unspecified; I10 Essential (primary) hypertension; K21.9 Gastro-esophageal reflux disease without esophagitis; R50.9 Fever, unspecified; D64.9 Anemia, unspecified; R05.9 Cough, unspecified; Z85.07 Personal history of malignant neoplasm of pancreas
CPT/HCPCS: 0241U-QW; 36415; 71045-TC-FY; 71260-TC; 74177-TC; 74182-TC; 80053; 81003; 82150; 82550; 82553; 82803; 83605; 83615; 83690; 84484; 85025; 85610; 85730; 86301; 86850; 86900; 86901; 87040; 87086; 87207; 87254; 87633; 87804; 93005; 93010; 93306-TC; 94640; 99285-25; C9803-CS; Q9967; U0003; U0005

== ENCOUNTER → 2022-12-25 | Day surgery (SDC) | payer BC | END | disposition home or self-care (01) | LOC: FMAMMOTONE 12:14 | PROVIDERS: ATTEND Internal Medicine Hematology & Oncology | PROC: 0HBU3ZX Excision of Left Breast, Percutaneous Approach, Diagnostic (ICD-10-PCS; principal; 2022-12-25) | DX: N60.31 Fibrosclerosis of right breast (principal); N64.89 Other specified disorders of breast; R92.1 Mammographic calcification found on diagnostic imaging of breast | CPT/HCPCS: 19081; 76098-TC-FY; 88305-TC ==

== ENCOUNTER → 2024-02-09 | Day surgery (SDC) | payer BC ==
[2024-02-09 10:11] LABS: BASO % 0.5 % (0-2.0); EOS % 3.6 % (0-4.5); HEMOGLOBIN 13.4 GM/dL (10.7-15.3); LYMPH % 18.1 % (8-40); MCH 28.2 pg (25.7-33.7); MCHC 32.7 g/dl (32.0-36.0); MEAN CELL VOLUME 86.1 fl (80-96); MEAN PLT VOLUME 8.5 fl (7.5-11.1); MONO % 6.2 % (3.8-10.2); NEUT % 71.6 % (42.8-82.8); PLATELET COUNT 232 10^3/uL (134-434); RBC 4.76 M/mm3 (3.60-5.2); RDW 14.2 % (11.6-15.6); WHITE BLOOD COUNT 7.6 K/mm3 (4.0-10.0)
[2024-02-09 10:18] LABS: INR 1.01 (0.83-1.09); PROTHROMBIN TIME (PATIENT) 11.6 SEC (9.7-13.0)
[2024-02-09 10:42] VITALS: RESP 12
[2024-02-09 11:23] VITALS: BP 123/77; PULSE 71
== END | disposition home or self-care (01) ==
LOC: JRADIR 09:06
PROVIDERS: ATTEND Internal Medicine Hematology & Oncology
PROC: 0JPT0WZ Removal of Totally Implantable Vascular Access Device from Trunk Subcutaneous Tissue and Fascia, Open Approach (ICD-10-PCS; principal; 2024-02-09)
DX: C50.919 Malignant neoplasm of unspecified site of unspecified female breast (principal)
CPT/HCPCS: 36415; 36590; 85025; 85610